=== PATIENT | male | born 1970 | race Caucasian/White ===

== ENCOUNTER 2023-03-16 07:22 | Outpatient (REF) | payer OTHER, SELFPAY ==
--- NOTE | ~2023-03-16 | CT_ITS ---
EXAMINATION: CT MAXILLOFACIAL WITHOUT CONTRAST CLINICAL INFORMATION: Polyp of nasal cavity. COMPARISON: None. TECHNIQUE: Multidetector helical imaging was performed in the axial plane with generation of coronal and sagittal reformatted images. This CT examination was performed using dose optimization techniques as appropriate, variously including the following: *Automated exposure control *Adjustment of mA and/or kV according to patient size (this includes techniques or standardized protocols for targeted exams where dose is matched to indication/reason for exam; i.e. extremities or head) *Use of iterative reconstruction technique DLP: 106 mGy-cm. FINDINGS: The frontal sinuses are clear. The ethmoid air cells are clear. The sphenoid sinuses and sphenoethmoidal recesses are clear. The maxillary sinuses and ethmoidal infundibula are clear. There is significant leftward deviation of the nasal septum. No definite nasal cavity polyp is seen. There are no fluid levels. The ethmoid roofs are symmetric. The lamina papyracea are intact. The carotid impressions are partly dehiscent into the sphenoid sinus. No maxillary periapical disease is seen. There are small amount of fluid in the left mastoid tip. The orbits are normal. The TMJs are unremarkable. The imaged portions of the brain demonstrate no acute abnormality. CT/CT sinus wo IV con IMPRESSION: Paranasal sinuses are clear without fluid levels. Significant leftward deviation of the nasal septum.
== END 2023-03-16 07:23 | disposition home or self-care (01) ==
LOC: HO.CT 07:22
PROVIDERS: PCP Internal Medicine; Visit Provider Otolaryngology
DX: J33.0 Polyp of nasal cavity (principal)
CPT/HCPCS: 70486